=== PATIENT | female | born 1975 | race Caucasian/White ===

== ENCOUNTER 2016-12-10 09:23 | Emergency (ER) | payer OTHER ==
--- NOTE | 2016-12-10 10:31 | RAD ---
Name: JASON DEL RIO Exam: Two-view chest Comparison: 03/19/2010 Clinical history: Left shoulder pain Findings: 2 views of the chest are submitted. The heart mediastinum and hilar structures are within normal limits. There is no failure, infiltrate, pleural effusion or pneumothorax. Regional skeleton is within normal limits. The gallbladder is surgically absent. Impression: No acute cardiopulmonary process
--- NOTE | 2016-12-10 10:32 | RAD ---
Name: JASON DEL RIO Exam: Left shoulder Comparison: None Clinical history: Left shoulder pain Findings: 3 views of left shoulder are submitted. Bone density is within normal limits. Acromioclavicular, coracoclavicular and glenohumeral joints are normal. Subacromial space is maintained. There is no fracture, dislocation or suspicious soft tissue calcification. Visualized portion of the left lung is clear. Impression: Negative left shoulder
== END 2016-12-10 11:40 | disposition home or self-care (01) ==
LOC: ED 09:23
DX: M25.512 Pain in left shoulder (principal); E66.9 Obesity, unspecified; Z85.3 Personal history of malignant neoplasm of breast; Z90.13 Acquired absence of bilateral breasts and nipples